=== PATIENT | female | born 1990 | race Caucasian/White ===

== ENCOUNTER 2016-09-08 15:21 | Emergency (ER) | payer OTHER ==
[~2016-09-08] VITALS: Ht 172.7 cm; Wt 81.8 kg
[~2016-09-08 15:21] MED LIST: ONDANSETRON ODT8 MG PO; PRENATAL VITAM1 EAC5 PO; TYLENOL REGULA325 MG PO
[2016-09-08 16:30] LABS: HEMATOCRIT 38.2 % (36.0-46.0); MCH 28.1 PG (29.0-34.0); MCHC 33.5 G/DL (30.0-36.0); PLATELET COUNT 347 K/uL (156-360); RBC DIS.WIDTH-CV 13.2 % (11.8-14.6); RBC DIS.WIDTH-SD 40.1 % (39-53); RED BLOOD COUNT 4.55 M/uL (3.80-5.20); WHITE BLOOD COUNT 12.1 K/uL (4.1-10.2)
[2016-09-08 16:37] LABS: CHLORIDE 109 mEq/L (99-109); POTASSIUM 3.9 mEq/L (3.7-5.4); SODIUM 140 mEq/L (136-147)
[2016-09-08 16:39] LABS: GLUCOSE 95 mg/dL (70-99)
[2016-09-08 16:40] LABS: ANION GAP 9 MEQ/L (2-14)
[2016-09-08 16:43] LABS: GFR ESTIMATE (CALCULATED) > 59 mL/min/
[2016-09-08 16:44] LABS: UREA NITROGEN (BUN) 9 mg/dL (9-23)
[2016-09-08 16:51] LABS: TROP-I INTERPRETATION NEGATIVE; TROPONIN-I < 0.01 ng/mL (0.0-0.30)
[2016-09-08 18:27] VITALS: BP 110/59
== END 2016-09-08 18:28 | disposition home or self-care (01) ==
LOC: EME 15:21
PROVIDERS: Nurse Practitioner Family
DX: R00.2 Palpitations (principal); Z91.013 Allergy to seafood; Z88.8 Allergy status to other drugs, medicaments and biological substances; Z87.891 Personal history of nicotine dependence
CPT/HCPCS: 71275; 80048; 84443; 84484; 85027; 93005; 99281; 99285; J7030

== ENCOUNTER 2017-01-14 17:49 | Emergency (ER) | payer OTHER ==
[~2017-01-14] VITALS: Ht 172.7 cm; Wt 86.1 kg
[2017-01-14 19:14] LABS: HEMATOCRIT 38.5 % (36.0-46.0); MCH 28.1 PG (29.0-34.0); MCHC 33.2 G/DL (30.0-36.0); MCV 84.6 FL (83-99); MEAN PLAT.VOLUME 9.2 uM^3 (9.5-12.4); PLATELET COUNT 318 K/uL (156-360); RBC DIS.WIDTH-CV 12.8 % (11.8-14.6); RBC DIS.WIDTH-SD 39.2 % (39-53); RED BLOOD COUNT 4.55 M/uL (3.80-5.20); WHITE BLOOD COUNT 11.8 K/uL (4.1-10.2)
[2017-01-14 19:30] LABS: CHLORIDE 106 mEq/L (99-109); SODIUM 142 mEq/L (136-147)
[2017-01-14 19:32] LABS: GLUCOSE 84 mg/dL (70-99)
[2017-01-14 19:33] LABS: ANION GAP 13 MEQ/L (2-14)
[2017-01-14 19:36] LABS: GFR ESTIMATE (CALCULATED) > 59 mL/min/; TROP-I INTERPRETATION NEGATIVE; TROPONIN-I < 0.01 ng/mL (0.0-0.30)
[2017-01-14 19:37] LABS: UREA NITROGEN (BUN) 11 mg/dL (9-23)
[2017-01-14 20:48] LABS: QUANTITATIVE HCG < 4.0 MIU/ML
[2017-01-14 21:32] VITALS: BP 120/84
== END 2017-01-14 21:33 | disposition left against medical advice (07) ==
LOC: EME 17:49
DX: R00.2 Palpitations (principal); Z87.891 Personal history of nicotine dependence
CPT/HCPCS: 71020; 80048; 84484; 84702; 85027; 85379; 93005; 99281; 99283